=== PATIENT | male | born 1995 | race Hispanic/Latino ===

== ENCOUNTER 2017-07-07 19:10 | Observation (INO) | payer BC ==
[2017-07-07] MEDS ORDERED: Sodium Chloride 0.9% 1,000 ML IV STA ×2 (19:19→21:34)
[2017-07-07 19:58] LABS: BASO % 0.8 % (0.0-2.0); EOS # 0.2 K/uL (0.0-0.7); EOS % 5.2 % (0.0-4.0); HEMATOCRIT 36.2 % (35.0-51.0); LYMPH # 1.7 K/uL (1.0-4.3); LYMPH % 37.9 % (20.0-40.0); MEAN CELL VOLUME 83.9 fl (80.0-94.0); MEAN CORPUSCULAR HEMOGLOBIN 29.5 pg (27.0-31.0); MEAN CORPUSCULAR HGB CONC 35.2 g/dL (33.0-37.0); MEAN PLATELET VOLUME 8.4 fl (7.2-11.7); MONO # 0.3 K/uL (0.0-0.8); MONO % 6.1 % (0.0-10.0); NEUT # 2.3 K/uL (1.8-7.0); NRBC % 0.1 % (0.0-0.0); RED CELL DISTRIBUTION WIDTH 13.4 % (11.5-14.5); WHITE BLOOD COUNT 4.5 K/uL (4.8-10.8)
[2017-07-07 20:07] LABS: ALB/GLOB RATIO 1.7 (1.0-2.1); ALCOHOL SERUM < 10 mg/dl (0-10); ALKALINE PHOSPHATASE 47 U/L (38-126); ALT/SGPT 26 U/L (21-72); AST/SGOT 26 U/L (17-59); BILIRUBIN,TOTAL 0.4 mg/dl (0.2-1.3); BLOOD UREA NITROGEN 7 mg/dl (9-20); CALCIUM 8.9 mg/dL (8.4-10.2); CARBON DIOXIDE 25 mmol/L (22-30); CHLORIDE 89 mmol/L (98-107); GFR AFRICAN-AMERICAN > 60; GLUCOSE,RANDOM 115 mg/dL (75-110); MAGNESIUM 1.6 MG/DL (1.6-2.3); PHOSPHOROUS 2.7 mg/dl (2.5-4.5); POTASSIUM 3.7 MMOL/L (3.6-5.0); SODIUM 125 mmol/l (132-148); TOTAL PROTEIN 7.3 G/DL (6.3-8.2)
--- NOTE | 2017-07-07 21:37 | ED PDOC ---
HPI: Seizure Time Seen by Provider: 07/07/17 19:17 Chief Complaint (Nursing): Seizure Chief Complaint (Provider): seizure History Per: Patient History/Exam Limitations: no limitations Recent Seizure Activity Began: Just Before Arrival Number Of Seizures: One Length Of Seizures (Duration): Minutes (1) Precipitating Factor(s): Decreased Sleep. denies: Missed Dose Of Anti-seizure Medication, Recent Change In Medication Or Dose, Recent Alcohol Ingestion, Recent Street Drugs, Recent Head Trauma Associated Symptoms: denies: Bit Tongue, Incontinence Of Urine Additional Complaint(s): Last seizure was 22 weeks ago Compliant with medications Trileptal and Keppra No recent change in medications. Past Medical History Reviewed: Historical Data, Nursing Documentation, Vital Signs Vital Signs: Last Vital Signs Temp 98.7 F 07/08/17 11:51 Pulse 75 07/08/17 11:51 Resp 20 07/08/17 11:51 BP 136/73 07/08/17 11:51 Pulse Ox 97 07/08/17 11:51 - Medical History PMH: Seizures - Surgical History Surgical History: No Surg Hx - Family History Family History: States: Unknown Family Hx - Social History Current smoker - smoking cessation education provided: No Alcohol: None Drugs: Denies - Immunization History Hx Tetanus Toxoid Vaccination: Yes - Home Medications Home Medications: Ambulatory Orders Medication Instructions Recorded OXcarbazepine [Trileptal] 1 tab PO BID 07/07/17 levETIRAcetam [Keppra] 1 tab PO BID 07/07/17 - Allergies Allergies/Adverse Reactions: Allergies Allergy/AdvReac Type Severity Reaction Status Date / Time beestings AdvReac RASH Uncoded 06/19/16 22:38 Review of Systems ROS Statement: Except As Marked, All Systems Reviewed And Found Negative (and as per HPI) Constitutional: Positive for: Weakness, Malaise Musculoskeletal: Negative for: Neck Pain Neurological: Positive for: Seizures. Negative for: Weakness, Numbness, Headache Physical Exam - Reviewed Nursing Documentation Reviewed: Yes Vital Signs Reviewed: Yes - Physical Exam Appears: Positive for: Well, No Acute Distress (but tired appearing) Head Exam: Positive for: ATRAUMATIC, NORMOCEPHALIC Skin: Positive for: Warm, Dry Eye Exam: Positive for: EOMI, PERRL ENT: Negative for: Pharyngeal Erythema, Tonsillar Exudate Neck: Positive for: Painless ROM, Supple Cardiovascular/Chest: Positive for: Regular Rate, Rhythm, Chest Non Tender. Negative for: Murmur Respiratory: Positive for: Normal Breath Sounds. Negative for: Wheezing Gastrointestinal/Abdominal: Positive for: Soft. Negative for: Tenderness Back: Positive for: Normal Inspection. Negative for: Decreased ROM Extremity: Positive for: Normal ROM. Negative for: Deformity Lymphatic: Negative for: Adenopathy Neurologic/Psych: Positive for: Alert. Negative for: Motor/Sensory Deficits - Laboratory Results Result Diagrams: 07/08/17 05:45 07/08/17 05:45 Interpretation Of Abn Labs: Hyponatremia hypochloremia - ECG O2 Sat by Pulse Oximetry: 99 Pulse Ox Interpretation: Normal - Progress ED Course And Treament: Labs demonstrate hyponatremia. Pt will be observed, given another bolus of NS and then recheck lytes. 10p Pt had another gen tonic clonic seizure in ER> Ativan given. Pt to be hospitalized for continue observation and correction of hyponatremia. TAVIA Mullins for hospitalization TAVIA Lundy who recommends to stop trileptal due to possible cause of hyponatremia, and recommends restarting topamax as well as repeat CT head. Pt refusing to restart topomax or have CT performed. Paged Dr Watson's service for further recommendation. 11pm TAVIA Melendez OUTSIDE SALES EXECUTIVE for Dr Watson pt's neurologist. She spoke to Dr Watson. Requests pt to be transferred to [place] for continuous video EEG monitoring. Also recommends to increase Keppra dose tongiht. DW Transfer center at [place]. Bed may not be available until AM. TAVIA pt and pt's father plan of care. On reeval pt stable and comfortable. - Critical Care Total Time (In Min): 30 Documented Critical Care: Time excludes all time spent performint seperately billable procedures Disposition - Clinical Impression Clinical Impression: Recurrent seizures Discussed With DrVamshi: Eric Mullins Doctor Will See Patient In The: Hospital Counseled Patient/Family Regarding: Studies Performed, Diagnosis - Disposition Disposition Time: 22:00 Condition: FAIR - Pt Status Changed To: Hospital Disposition Of: Observation - POA Present On Arrival: Falls Or Trauma (due to seizure)
[2017-07-07] MEDS ORDERED: levETIRAcetam 500 MG in Sodium Chloride 0.9% 100 ML IVPB ONE (23:24)
[2017-07-08 06:27] LABS: MEAN CELL VOLUME 82.5 fl (80.0-94.0); MEAN CORPUSCULAR HEMOGLOBIN 30.2 pg (27.0-31.0); MEAN CORPUSCULAR HGB CONC 36.6 g/dL (33.0-37.0); RED CELL DISTRIBUTION WIDTH 13.3 % (11.5-14.5); WHITE BLOOD COUNT 6.4 K/uL (4.8-10.8)
[2017-07-08 06:52] LABS: ALB/GLOB RATIO 1.5 (1.0-2.1); ALKALINE PHOSPHATASE 53 U/L (38-126); ALT/SGPT 32 U/L (21-72); AST/SGOT 29 U/L (17-59); BILIRUBIN,TOTAL 0.7 mg/dl (0.2-1.3); BLOOD UREA NITROGEN 4 mg/dl (9-20); CALCIUM 8.9 mg/dL (8.4-10.2); CARBON DIOXIDE 23 mmol/L (22-30); CHLORIDE 97 mmol/L (98-107); CHOLESTEROL 142 mg/dL (0-199); GFR AFRICAN-AMERICAN > 60; GLUCOSE,RANDOM 95 mg/dL (75-110); SODIUM 131 mmol/l (132-148); TOTAL PROTEIN 7.4 G/DL (6.3-8.2)
[2017-07-08 07:10] LABS: T4 5.03 ug/dl (5.5-11.0)
[2017-07-08 07:22] LABS: THYROID STIMULATING HORMONE 2.81 mIU/ML (0.46-4.68)
[2017-07-08 07:44] VITALS: RESP 20
[2017-07-08] MEDS ORDERED: OXCARBAZEPINE PO SCH (09:00)
[2017-07-08 11:51] VITALS: BP 136/73; PULSE 75; TEMP 98.7
[2017-07-08 14:01] VITALS: O2SAT 99
--- NOTE | 2017-07-08 15:11 | CARD ---
APPROVED REPORT EKG Measurement Heart [id number] <Conclusion> Normal sinus rhythm Biatrial enlargement Rightward axis Early repolarization Abnormal ECG
--- NOTE | 2017-07-08 16:31 | CP.PCM.HP ---
History of Present Illness - History of Present Illness History of Present Illness: CC: Seizure Disorder. 21 y/[facility] M, [facility] after having a Seizure attack on DOA, there after symptoms subsided. Pt was brought to hospital by EMS with O2 NC, after been informed Pt having a Seizure episode while sitting there that lasted one minute, witnessed by a friend. No post ictal symptoms. As per Pt, last episode was 22 weeks ago. Worsening symptom: Decreasing sleep, Anxiety. Aggravated factor: Pt in compliance with meds for seizure at home ( Keppra and Trileptal) but not controlled. Pt denied: Headache, tongue bite, n/v/d, abdominal pain, urinary symptoms, CP, palpitations, SOB, sick contact, recent travel out of [place]. Present on Admission - Present on Admission Any Indicators Present on Admission: No Review of Systems - Constitutional Constitutional: Frequent Falls, Malaise - EENT Eyes: Other (negative) Ears: Other (negative) Nose/Mouth/Throat: Other (negative) - Cardiovascular Cardiovascular: Other (negative) - Respiratory Respiratory: Other (negative) - Gastrointestinal Gastrointestinal: Other (negative) - Genitourinary Genitourinary: Other (negative) - Musculoskeletal Musculoskeletal: Other (negative) - Integumentary Integumentary: Other (negative) - Neurological Neurological: Convulsions - Psychiatric Psychiatric: Anxiety, Depression - Endocrine Endocrine: Other (negative) - Hematologic/Lymphatic Hematologic: Other (negative) Past Patient History - Infectious Disease Hx of Infectious Diseases: None - Past Medical History & Family History Past Medical History?: Yes Pertinent Family History: Unknown - Past Social History Alcohol: None Drugs: Denies Home Situation {Lives}: With Family - CARDIAC Hx Cardiac Disorders: No - PULMONARY Hx Respiratory Disorders: No - NEUROLOGICAL Hx Neurological Disorder: Yes Hx Seizures: Yes - HEENT Hx HEENT Problems: No - RENAL Hx Chronic Kidney Disease: No - ENDOCRINE/METABOLIC Hx Endocrine Disorders: No - HEMATOLOGICAL/ONCOLOGICAL Hx Blood Disorders: No - INTEGUMENTARY Hx Dermatological Problems: No - MUSCULOSKELETAL/RHEUMATOLOGICAL Hx Musculoskeletal Disorders: Yes Hx Falls: Yes - GASTROINTESTINAL Hx Gastrointestinal Disorders: No - GENITOURINARY/GYNECOLOGICAL Hx Genitourinary Disorders: No - PSYCHIATRIC Hx Psychophysiologic Disorder: No Hx Substance Use: No - SURGICAL HISTORY Hx Surgeries: No - ANESTHESIA Hx Anesthesia: No Hx Anesthesia Reactions: No Hx Malignant Hyperthermia: No Meds Allergies/Adverse Reactions: Allergies Allergy/AdvReac Type Severity Reaction Status Date / Time beestings AdvReac RASH Uncoded 06/19/16 22:38 Physical Exam - Constitutional Appears: No Acute Distress - Head Exam Head Exam: NORMAL INSPECTION - Eye Exam Eye Exam: PERRL - ENT Exam ENT Exam: Normal Exam - Neck Exam Neck exam: Positive for: Normal Inspection - Respiratory Exam Respiratory Exam: NORMAL BREATHING PATTERN - Cardiovascular Exam Cardiovascular Exam: REGULAR RHYTHM - GI/Abdominal Exam GI & Abdominal Exam: Normal Bowel Sounds, Soft - Extremities Exam Extremities exam: Positive for: normal inspection - Back Exam Back exam: NORMAL INSPECTION - Neurological Exam Neurological exam: Alert, Oriented x3 Additional comments: No motor sensory deficit. - Psychiatric Exam Psychiatric exam: Anxious, Depressed - Skin Skin Exam: Normal Color, Warm Results - Vital Signs Recent Vital Signs: Last Vital Signs Temp 98.7 F 07/08/17 11:51 Pulse 75 07/08/17 11:51 Resp 20 07/08/17 11:51 BP 136/73 07/08/17 11:51 Pulse Ox 99 07/08/17 14:04 reviewed J.P. - Labs Result Diagrams: 07/08/17 05:45 07/08/17 05:45 Labs: Laboratory Results - last 24 hr 07/07/17 07/07/17 07/07/17 19:50 19:50 19:52 WBC 4.5 L RBC 4.31 L Hgb 12.7 Hct 36.2 MCV 83.9 MCH 29.5 MCHC 35.2 RDW 13.4 Plt Count 125 L MPV 8.4 Neut % (Auto) 50.0 Lymph % (Auto) 37.9 [place] % (Auto) 6.1 Eos % (Auto) 5.2 H Baso % (Auto) 0.8 Neut # 2.3 Lymph # 1.7 [place] # 0.3 Eos # 0.2 Baso # 0.0 Sodium 125 L Potassium 3.7 Chloride 89 L Carbon Dioxide 25 Anion Gap 15 BUN 7 L Creatinine 0.5 L Est GFR ( Amer) > 60 Est GFR (Non-Af Amer) > 60 POC Glucose (mg/dL) Random Glucose 115 H Lactic Acid 2.8 H Calcium 8.9 Phosphorus 2.7 Magnesium 1.6 Total Bilirubin 0.4 AST 26 ALT 26 Alkaline Phosphatase 47 Total Creatine Kinase 203 H Total Protein 7.3 Albumin 4.6 Globulin 2.7 Albumin/Globulin Ratio 1.7 Triglycerides Cholesterol LDL Cholesterol Direct HDL Cholesterol Thyroxine (T4) TSH 3rd Generation Alcohol, Quantitative < 10 07/07/17 07/08/17 07/08/17 22:02 05:45 05:45 WBC 6.4 RBC 4.60 Hgb 13.9 Hct 38.0 MCV 82.5 MCH 30.2 MCHC 36.6 RDW 13.3 Plt Count 138 MPV Neut % (Auto) Lymph % (Auto) [place] % (Auto) Eos % (Auto) Baso % (Auto) Neut # Lymph # [place] # Eos # Baso # Sodium 131 L Potassium 4.0 Chloride 97 L Carbon Dioxide 23 Anion Gap 15 BUN 4 L Creatinine 0.6 L Est GFR ( Amer) > 60 Est GFR (Non-Af Amer) > 60 POC Glucose (mg/dL) 119 H Random Glucose 95 Lactic Acid Calcium 8.9 Phosphorus Magnesium Total Bilirubin 0.7 AST 29 ALT 32 Alkaline Phosphatase 53 Total Creatine Kinase Total Protein 7.4 Albumin 4.4 Globulin 3.0 Albumin/Globulin Ratio 1.5 Triglycerides 68 Cholesterol 142 LDL Cholesterol Direct 77 HDL Cholesterol 44 Thyroxine (T4) 5.03 L TSH 3rd Generation 2.81 Alcohol, Quantitative reviewed J.P. - EKG Data EKG comments: reviewed J.P. Assessment & Plan (1) Hyponatremia Status: Acute Priority: High (2) Recurrent seizures Status: Acute Priority: High - Assessment and Plan (Free Text) Plan: Pt denied CT Head and Tx of Topamax. Continue Keppra, Trileptal, NS IV and rest of Tx, Neurology consult. - Date & Time Date: 07/08/17 Time: 13:40
== END 2017-07-08 14:45 | disposition left against medical advice (07) ==
LOC: H.ER 19:10 → H.ERHOLD 22:15 → H.TEL 07-08 03:33
PROVIDERS: ADMIT Internal Medicine Pulmonary Disease; ATTEND Internal Medicine Pulmonary Disease
DX: E87.1 Hypo-osmolality and hyponatremia (principal); G40.909 Epilepsy, unspecified, not intractable, without status epilepticus; F41.9 Anxiety disorder, unspecified
CPT/HCPCS: 36415; 80053; 80061; 80183; 80299; 82550; 82948; 83605; 83735; 84100; 84436; 84443; 85025; 85027; 93005; 96361; 96374; 96375; 99285; G0378; G0480; J1953; J2060; J2405; J7040

== ENCOUNTER 2017-12-05 09:34 | Emergency (ER) | payer BC ==
[2017-12-05 09:46] VITALS: RESP 16; TEMP 98.2; O2SAT 100
--- NOTE | 2017-12-05 10:49 | ED PDOC ---
HPI: General Adult Time Seen by Provider: 12/05/17 10:35 Chief Complaint (Nursing): Med Refill Chief Complaint (Provider): requesting ativan History Per: Patient History/Exam Limitations: no limitations Onset/Duration Of Symptoms: Days (0.5) Have you had recent travel within the past 21 days to any of the following countries: [place], [place], [place] or [place]?: No Current Symptoms Are (Timing): Other (improving) Severity: Mild Similar Symptoms Previously: yes Recent Trauma: no Additional Complaint(s): pt p/w + recurrent seizure x 3 episodes last night; pt felt the symptoms afterwards, and pt states he was in bed during these episodes; pt states he is in the ED for ativan refill as he ran out of them recently; pt states he usually takes the ativan to prevent further seizures; pt is on trileptal/keppra ; no recent medication changes; pt states this is one of the first recurrent seizure since few months ago; pt states his seizures recurrence appears to be decreasing; pt states no fever/chills/sweats, no cp/sob/palpitations, no abd pain, no n/v, no numbness/tingling, no gross bleeding, no urinary/bowel changes , no incontinence, no fall/trauma/sick contact, no registered travel nurse denied vision changes, no new headache pt is here for further eval pt's without other complaints. PCP: n/a Neurology: Dr Venegas? renetta Past Medical History Reviewed: Historical Data, Nursing Documentation, Vital Signs Vital Signs: Last Vital Signs Temp 98.2 F 12/05/17 09:43 Pulse 67 12/05/17 09:43 Resp 16 12/05/17 09:43 BP 111/71 12/05/17 09:43 Pulse Ox 100 12/05/17 11:05 - Medical History PMH: Seizures Denies: Chronic Kidney Disease - Family History Family History: States: Unknown Family Hx - Living Arrangements Living Arrangements: Other (with brother) - Social History Alcohol: Occasional Drugs: Denies - Immunization History Hx Tetanus Toxoid Vaccination: Yes - Home Medications Home Medications: Ambulatory Orders Medication Instructions Recorded OXcarbazepine [Trileptal] 1 tab PO BID 07/07/17 levETIRAcetam [Keppra] 1 tab PO BID 07/07/17 - Allergies Allergies/Adverse Reactions: Allergies Allergy/AdvReac Type Severity Reaction Status Date / Time beestings AdvReac RASH Uncoded 06/19/16 22:38 Review of Systems ROS Statement: Except As Marked, All Systems Reviewed And Found Negative Constitutional: Negative for: Fever, Weakness Eyes: Negative for: Pain, Vision Change ENT: Negative for: Ear Pain Cardiovascular: Negative for: Chest Pain Respiratory: Negative for: Cough, Shortness of Breath, SOB with Exertion Gastrointestinal: Negative for: Nausea, Vomiting, Abdominal Pain Genitourinary Male: Negative for: Incontinence Musculoskeletal: Negative for: Neck Pain, Back Pain Skin: Negative for: Rash Neurological: Positive for: Seizures, Headache. Negative for: Altered Mental Status Physical Exam - Reviewed Nursing Documentation Reviewed: Yes Vital Signs Reviewed: Yes (WNL) - Physical Exam Appears: Positive for: Well (alert/awake, GCS = 15, oriented x 3, NAD, uncomfortable, cooperative), Non-toxic Head Exam: Positive for: ATRAUMATIC, NORMAL INSPECTION, NORMOCEPHALIC Skin: Positive for: Normal Color (cap refill < 1sec, no ulcerations, no petechiae, no rashes, no lesions), Warm Eye Exam: Positive for: Normal appearance, EOMI, PERRL, Other (no photophobia, sclera anicteric). Negative for: Nystagmus ENT: Positive for: Normal ENT Inspection, Other (noted a faint right outer border of the tongue abrasion, no laceration; uvula/tongue are midline, no exudate/lesions, no drooling/stridor; intact dentitions) Neck: Positive for: Normal, Supple (no midline tenderness, no step off, no intact ROM) Cardiovascular/Chest: Positive for: Regular Rate, Rhythm, Other (+S1, +S2). Negative for: Murmur Respiratory: Positive for: Normal Breath Sounds, Other (CTA b/l, no w/r/r, no accessory muscle use noted, no tachypenia; no retractions) Gastrointestinal/Abdominal: Positive for: Normal Exam, Bowel Sounds, Soft (well nourished male, no focal tenderness, no harper's sign, no mcburney's point tenderness, no masses/rebound/guarding/rigidity). Negative for: Distended Back: Positive for: Normal Inspection, Other (no step off, no midline tenderness ). Negative for: L CVA Tenderness, R CVA Tenderness Extremity: Positive for: Normal ROM, Other (+ ambulatory, neurovasc intact b/l, strength 5/5 grossly intact in all limbs) Neurologic/Psych: Positive for: Alert, qc scientist II-XII, Oriented, Other (no slurr speech, oriented x 3, GCS = 15, oriented x 3; NIH stroke scale ~ 0) - Laboratory Results Result Diagrams: 12/05/17 11:00 12/05/17 11:00 Interpretation Of Abnormal: decr NA - similiar to prior results - ECG O2 Sat by Pulse Oximetry: 100 Pulse Ox Interpretation: Normal - Progress ED Course And Treament: 10:50am - discussed with patient regarding refill for ativan, i would not be able to refill his medications, but he is instructed to see his PCP/ neurologists in the next 1-2 days for medication refill; pt expressed understanding; pt will receive one dose of ativan while in the ED however 11:30am - parents are at bedside, states patient is currently at baseline mental status pt is now resting/comfortable, NAD 12:30pm - parents/patient are made aware of pt's medical results pt is encouraged continued medications pt is due to see a specialists in [facility] in 5 days (for ablation procedure?) pt will f/u as directed pt will be discharged home Re-evaluation Time: 11:03 Condition: Improved Medical Decision Making Medical Decision Making: Impression: recurrent seizure, medication refill? i have consider all the differential diagnosis regarding pt's chief medical complaints/clinical findings, including but are not limited to: recurrent seizure, medication refill? A/P: recurrent seizure, medication refill? - labs - supportive care - observe Disposition - Clinical Impression Clinical Impression: Recurrent seizures, Encounter for medication refill, Hyponatremia - Patient ED Disposition Is Patient to be Admitted: No Counseled Patient/Family Regarding: Studies Performed, Need For Followup, Rx Given - Disposition Referrals: PCP,NO [Non-Staff] - Disposition: Routine/Home Disposition Time: 12:41 Condition: STABLE Additional Instructions: Make sure to see your doctor in 1-2 days DRINK PLENTY OF FLUIDS take your medications as prescribed RETURN TO ED IF worse pain, cant breath, persistent vomiting, high fever >101- 102 for hours, altered behavior, slurr speech, persistent seizure, facial changes, focal weakness (arm/leg or both), unable to urinate, heavy/persistent bleeding, passing out, chest pain, or other medical emergencies Instructions: Seizures, Adult (DC), Hyponatremia Forms: [facility] ([place]) Print Language: ARMENIAN
[2017-12-05 11:09] LABS: BASO % 0.4 % (0.0-2.0); EOS # 0.2 K/uL (0.0-0.7); EOS % 5.1 % (0.0-4.0); HEMOGLOBIN 13.7 g/dL (12.0-18.0); LYMPH # 1.2 K/uL (1.0-4.3); LYMPH % 26.1 % (20.0-40.0); MEAN CELL VOLUME 85.7 fl (80.0-94.0); MEAN CORPUSCULAR HEMOGLOBIN 30.4 pg (27.0-31.0); MEAN CORPUSCULAR HGB CONC 35.4 g/dL (33.0-37.0); MONO # 0.4 K/uL (0.0-0.8); MONO % 8.9 % (0.0-10.0); NEUT # 2.8 K/uL (1.8-7.0); NEUT % 59.5 % (50.0-75.0); NRBC % 0.1 % (0.0-0.0); RBC 4.53 Mil/uL (4.40-5.90); RED CELL DISTRIBUTION WIDTH 13.2 % (11.5-14.5); WHITE BLOOD COUNT 4.7 K/uL (4.8-10.8)
[2017-12-05 11:20] LABS: BLOOD UREA NITROGEN 9 mg/dl (9-20); GFR AFRICAN-AMERICAN > 60; GFR NON-AFRICAN AMERICAN > 60
[2017-12-05 12:52] VITALS: BP 110/68; PULSE 68
== END 2017-12-05 12:30 | disposition home or self-care (01) ==
LOC: H.ER 09:34
DX: Z76.0 Encounter for issue of repeat prescription (principal); Z86.69 Personal history of other diseases of the nervous system and sense organs; E87.1 Hypo-osmolality and hyponatremia